=== PATIENT | female | born 1960 | race Caucasian/White ===

== ENCOUNTER 2016-09-30 06:34 | Inpatient (IN) | payer OTHER ==
[~2016-09-30] VITALS: Ht 162.6 cm; Wt 94.3 kg
[~2016-09-30 06:34] MED LIST: ALPR0.2583 PO; LISI40TA4 PO; NEFA150T PO; NOR10 PO; SITA1TAB10 PO; VENL150C2 PO; [UNRECOGNIZED DRUG - CODE] PO
[2016-09-30] MEDS ORDERED: CEFAZOLIN SOD 1 GM/ ISO 50 ML PREMIX IV ONE (07:00)
[2016-09-30] MEDS ORDERED: VENL37.510 PO (07:20)
[2016-09-30] MEDS ORDERED: LOVA20TA2 PO (07:20)
[2016-09-30] MEDS ORDERED: FEXO-25 PO (07:20)
[2016-09-30] MEDS ORDERED: ACET-2165 PO (07:20)
[2016-09-30] MEDS ORDERED: POLYMYXIN 500,000/BACIT.10,000 UNITS in NS IRR 1 L IR ONE (07:33)
[2016-09-30] MEDS ORDERED: LR 1,000 ML IV SCH (08:36)
[2016-09-30] MEDS ORDERED: HYDROmorphone 2 MG/ML VIAL IVP PRN ×2 (08:45)
[2016-09-30] MEDS ORDERED: DIPHENHYDRAMINE INJ 50 MG/ML VIAL IVP PRN (08:45)
[2016-09-30] MEDS ORDERED: KETOROLAC TROMETHAMINE 30 MG VIAL IVP PRN (08:45)
[2016-09-30] MEDS ORDERED: ONDANSETRON HCL 4 MG/2 ML VIAL IVP PRN (08:45)
[2016-09-30] MEDS ORDERED: HYDROmorphone 1 MG INJ. 1 MG/ML AMPUL IVP PRN ×2 (08:45)
[2016-09-30] MEDS ORDERED: NALBUPHINE HCL 10 MG/ML AMP IVP PRN (08:45)
[2016-09-30] MEDS ORDERED: D5/0.45 NS 1,000 ML IV ONE (10:03)
[2016-09-30] MEDS ORDERED: BISACODYL 10 MG/SUPPOSITORY RC PRN (10:15)
[2016-09-30] MEDS ORDERED: ACETAMINOPHEN 325 MG TABLET PO PRN (10:15)
[2016-09-30] MEDS ORDERED: MORPHINE SULFATE 10 MG/ML VIAL IM PRN (10:15)
[2016-09-30] MEDS ORDERED: ROPIVACAINE 0.2% 100 ML ONE (10:31)
[2016-09-30] MEDS ORDERED: HYDROmorphone 1 MG INJ. 1 MG/ML AMPUL ONE (10:37)
[2016-09-30 12:50] VITALS: BP_SYST 136
[2016-09-30] MEDS: CEFAZOLIN 1 GM IVPB PREMIX 50 ML IV SCH ×2 (12:57→20:36)
[2016-09-30] MEDS ORDERED: fentaNYL CITRATE/PF 100 MCG/2 ML AMP ONE (14:00)
[2016-09-30] MEDS ORDERED: METOPROLOL TARTRATE 5 MG/5 ML VIAL ONE (14:00)
[2016-09-30] MEDS ORDERED: PROPOFOL 200MG/ 20ML VIAL (DIPRIVAN) IV ONE (14:00)
[2016-09-30] MEDS ORDERED: ONDANSETRON HCL 4 MG/2 ML VIAL ONE (14:00)
[2016-09-30] MEDS ORDERED: NS IRRIG SOLN 1000 ML IR ONE (14:00)
[2016-09-30] MEDS ORDERED: BACITRACIN 50,000 UNITS VIAL ONE (14:00)
[2016-09-30] MEDS ORDERED: KETOROLAC TROMETHAMINE 30 MG VIAL ONE (14:00)
[2016-09-30] MEDS ORDERED: POLYMYXIN B SULFATE 500,000 UNITS VIAL ONE (14:00)
[2016-09-30] MEDS ORDERED: LR 1,000 ML IV.SOLN IV ONE (14:00)
[2016-09-30] MEDS ORDERED: MIDAZOLAM HCL 5 MG/5 ML VIAL ONE (14:00)
[2016-09-30] MEDS ORDERED: CEFAZOLIN 2 GM IVPB PREMIX 50 ML IV ONE (14:00)
[2016-09-30] MEDS ORDERED: TRANEXAMIC ACID 1,000 MG/10 ML VIAL IV ONE (14:00)
[2016-09-30] MEDS ORDERED: SEVOFLURANE 15 MIN GAS INH ONE (14:00)
[2016-09-30 16:03] VITALS: BP_SYST 123
[2016-09-30 16:18] VITALS: BP_SYST 123
[2016-09-30] MEDS: RIVAROXABAN 10 MG TABLET PO SCH (17:53)
[2016-09-30] MEDS: ROPIVACAINE 0.2% 100 ML INJ SCH (20:37)
[2016-09-30 20:43] VITALS: BP_SYST 130
[2016-10-01 00:04] VITALS: BP_SYST 128
[2016-10-01] MEDS: ONDANSETRON HCL 4 MG/2 ML VIAL IVP PRN ×2 (03:14→12:56)
[2016-10-01] MEDS ORDERED: NALOXONE HCL 0.4 MG/ML AMP (NARCAN) IVP PRN (03:30)
[2016-10-01] MEDS: HYDROMORPHONE PCA 10 mg/50 mL IV PRN ×2 (03:35→16:05)
[2016-10-01 04:22] VITALS: BP_SYST 121
[2016-10-01 04:26] LABS: BILIRUBIN,URINE NEGATIVE (NEGATIVE); BLOOD, URINE 1+ (NEGATIVE); CLARITY/URINE CLEAR (CLEAR); COLOR,URINE YELLOW (YELLOW); GLUCOSE,URINE 3+ (NEGATIVE); KETONES,URINE NEGATIVE (NEGATIVE); LEUKOCYTE ESTERASE ,URINE NEGATIVE (NEGATIVE); NITRITE, URINE NEGATIVE (NEGATIVE); PH,URINE 5.5 (5.0-8.0); PROTEIN URINE NEGATIVE (NEGATIVE); UROBILINOGEN,URINE 0.2 (0.2-1.0)
[2016-10-01] MEDS: MEPERIDINE HCL/PF 25 MG/ML DISP.SYRIN IVP PRN ×3 (04:45→23:41)
[2016-10-01 05:02] LABS: BACTERIA,URINE FEW /HPF (None Seen); MUCUS,URINE None Seen /LPF (None Seen); RBC,URINE 20-50 /HPF (0-3)
[2016-10-01 08:45] VITALS: BP_SYST 115
[2016-10-01] MEDS: ROPIVACAINE 0.2% 100 ML INJ SCH ×2 (09:22→21:32)
[2016-10-01 11:35] VITALS: BP_SYST 136
[2016-10-01 12:19] LABS: CALCIUM 8.2 mg/dL (8.4-11.0); CREATININE 0.78 mg/dL (0.55-1.30); POTASSIUM 3.7 mmol/L (3.5-5.1)
[2016-10-01 12:20] LABS: BASOPHILS % (AUTO) 0.1 % (0.0-2.0); HEMATOCRIT 30.8 % (36-48); LYMPHOCYTES # (AUTO) 0.7 K/uL (1.0-5.5); LYMPHOCYTES % (AUTO) 4.5 % (20.5-51.5); MEAN CORPUSCULAR HEMOGLOBIN 28 pg (27-31); MEAN CORPUSCULAR HGB CONC 33 % (32-36); MEAN CORPUSCULAR VOLUME 85 fL (79.0-98.0); MONOCYTES # (AUTO) 1.1 K/uL (0.0-1.0); NEUTROPHILS # (AUTO) 13.4 K/uL (1.8-7.7); NEUTROPHILS % (AUTO) 88.4 % (40.0-70.0); PLATELET COUNT (AUTO) 183 K/uL (130-430); RED CELL DISTRIBUTION WIDTH 13.7 % (9.0-15.0); WHITE BLOOD COUNT (AUTO) 15.2 K/uL (4.8-10.8)
[2016-10-01 12:25] LABS: ALBUMIN 3.5 g/dL (3.4-4.8); TOTAL BILIRUBIN 0.5 mg/dL (0.0-1.0); TOTAL PROTEIN, SERUM 6.7 g/dL (6.4-8.3)
[2016-10-01 15:33] VITALS: BP_SYST 129
[2016-10-01] MEDS: RIVAROXABAN 10 MG TABLET PO SCH (17:00)
[2016-10-01 20:00] VITALS: BP_SYST 127
[2016-10-02] VITALS (7 sets, daily range): BP systolic 118–132
[2016-10-02] MEDS: MEPERIDINE HCL/PF 25 MG/ML DISP.SYRIN IVP PRN (03:24)
[2016-10-02] MEDS ORDERED: cefTRIAXone 1 GM IVPB PREMIX 50 ML IV ONE (03:45)
[2016-10-02] MEDS: HYDROMORPHONE PCA 10 mg/50 mL IV PRN (05:50)
[2016-10-02] MEDS ORDERED: cefTRIAXone 1 GM in D5W 50 ML IV SCH ×2 (06:00→09:00)
[2016-10-02] MEDS: ROPIVACAINE 0.2% 100 ML INJ SCH ×2 (10:38→12:18)
[2016-10-02 11:52] LABS: BASOPHILS # (AUTO) 0.1 K/uL (0.0-0.2); BASOPHILS % (AUTO) 1.1 % (0.0-2.0); EOSINOPHILS % (AUTO) 0.3 % (0.0-4.0); HEMATOCRIT 30.1 % (36-48); LYMPHOCYTES # (AUTO) 0.9 K/uL (1.0-5.5); MEAN CORPUSCULAR HEMOGLOBIN 29 pg (27-31); MEAN CORPUSCULAR HGB CONC 33 % (32-36); MEAN CORPUSCULAR VOLUME 86 fL (79.0-98.0); MONOCYTES # (AUTO) 1.2 K/uL (0.0-1.0); MONOCYTES % (AUTO) 9.4 % (1.7-9.3); NEUTROPHILS # (AUTO) 10.9 K/uL (1.8-7.7); NEUTROPHILS % (AUTO) 82.2 % (40.0-70.0); PLATELET COUNT (AUTO) 179 K/uL (130-430); RED CELL DISTRIBUTION WIDTH 14.3 % (9.0-15.0); WHITE BLOOD COUNT (AUTO) 13.1 K/uL (4.8-10.8)
[2016-10-02] MEDS: HYDROcodone/ACETAMIN 7.5-325 MG TAB PO PRN ×2 (17:33→22:06)
[2016-10-02] MEDS: RIVAROXABAN 10 MG TABLET PO SCH (17:33)
[2016-10-03 01:05] VITALS: BP_SYST 130
[2016-10-03] MEDS: HYDROcodone/ACETAMIN 7.5-325 MG TAB PO PRN ×4 (01:51→16:14)
[2016-10-03 04:00] VITALS: BP_SYST 131
[2016-10-03 08:16] VITALS: BP_SYST 130
[2016-10-03] MEDS ORDERED: cefTRIAXone 1 GM in D5W 50 ML IV SCH (09:00)
[2016-10-03 12:00] VITALS: BP_SYST 124
[2016-10-03 14:14] VITALS: BP_SYST 124
[2016-10-03 17:27] VITALS: BP_SYST 125
== END 2016-10-03 17:00 | disposition home or self-care (01) | DRG 470 ==
LOC: SMU 06:34 → STU 11:48 → SMU 10-02 19:27
PROVIDERS: ADMIT Orthopaedic Surgery; ATTEND Orthopaedic Surgery
PROC: 0SRC0J9 Replacement of Right Knee Joint with Synthetic Substitute, Cemented, Open Approach (ICD-10-PCS; principal; 2016-09-30 08:30)
DX: M17.11 Unilateral primary osteoarthritis, right knee (principal); E11.9 Type 2 diabetes mellitus without complications; F17.200 Nicotine dependence, unspecified, uncomplicated; I10 Essential (primary) hypertension; G89.29 Other chronic pain; Z90.710 Acquired absence of both cervix and uterus; Z98.84 Bariatric surgery status
CPT/HCPCS: 36415; 80053; 81000-TC; 83605; 85025; 87040-TC; 87081; 87086; 88305; 88311; 94010; 94760; 97039; 97110-GP; 97116-GP; 97530-GP; C1713; C1776; J0690; J0696; J1170; J1885; J2175; J2250; J2405; J2704; J2795; J3010; J3490; J7050; J7060; J7120